=== PATIENT | female | born 1985 | race Hispanic/Latino ===

== ENCOUNTER 2024-02-27 15:08 | Emergency (ER) | payer BC ==
--- NOTE | 2024-02-27 15:44 | RAD REPORT ---
EXAM DESCRIPTION: US - Abdomen Exam Limited - 02/27/2024 3:32 pm CLINICAL HISTORY: GB eval Abdominal pain COMPARISON: No comparisons FINDINGS: The gallbladder demonstrates large shadowing gallstone. Gallbladder wall is not significan tly thickened. The common bile duct is normal measuring 5 mm. The liver demonstrates no findings of intrahepatic biliary dilatation. IMPRESSION: Cholelithiasis.
[2024-02-27] MEDS ORDERED: MORPHINE 4 MG/ML SYR ONE (16:25)
[2024-02-27] MEDS ORDERED: ONDANSETRON 4 MG/2 ML VIAL ONE (16:25)
[2024-02-27] MEDS ORDERED: NA CHLORIDE 0.9% 1,000 ML ONE (16:25)
[2024-02-27 17:40] LABS: Specific Gravity 1.013 (1.005-1.030)
[2024-02-27 17:41] LABS: Absolute Basophils 0.1 K/uL (0-0.5); Absolute Eosinophils 0.2 K/uL (0-0.5); Absolute Lymphocytes (CBC) 1.1 K/uL (0.7-4.9); Basophils % 0.4 % (0-1.3); Eosinophils % 1.3 % (0-4.4); Hematocrit 36.3 % (36.0-45.0); Lymphocytes % 7.4 % (15.3-44.8); MCH 26.7 pg (27.0-35.0); MCHC 33.1 g/dL (32.0-36.0); MCV 80.7 fL (80-100); MPV 7.7 fL (7.6-11.3); Neutrophils % 83.9 % (41.7-73.7); Nucleated Red Blood Cells % 0.1 % (0-0); Platelets 347 thou/uL (152-406)
[2024-02-27 17:55] LABS: Albumin 3.9 g/dL (3.4-5.0); Albumin/Globulin Ratio 1.1 (1.1-1.8); Anion Gap 8.7 mEq/L (5.0-15.0); Bilirubin Total 0.7 mg/dL (0.2-1.0); Globulin 3.6 g/dL (2.3-3.5); Potassium 3.7 mEq/L (3.5-5.1); Protein, Total 7.5 g/dL (6.4-8.2)
--- NOTE | 2024-02-27 18:26 | EDPHYS ---
Physician Documentation [facility] Name: Arline Enamorado Age: 38 yrs Sex: Female : 1985 Arrival Date: 02/27/2024 Time: 15:08 Bed 9 Private MD: ED Physician Stef Abbott HPI: 02/26 15:48 This 38 yrs old Female presents to ER via Ambulatory with complaints of Abdominal Pain, ec2 Back Pain. 15:49 Patient arrives today for epigastric abdominal pain radiating to the right shoulder, ec2 history of gallstones. Patient reports of associated nausea without vomiting. Last p.o. 11:00. Historical: - Allergies: 18:17 No Known Allergies; ar6 - Immunization history:: Adult Immunizations up to date. - Infectious Disease History:: Denies. - Social history:: Smoking status: Patient denies any tobacco usage or history of. ROS: 15:49 Constitutional: as per hpi ec2 Exam: 15:49 Constitutional: GEN: NAD Head: atraumatic Eyes: EOMI Ears: External ears are ec2 normal. CV: regular rate LUNGS: no respiratory distress ABD: non-distended, tender in the epigastrium SKIN: no evidence of rashes MSK: no evidence of trauma Vital Signs: 15:41 BP 126 / 87; Pulse 73; Resp 16; Temp 98.5(O); Pulse Ox 100% on R/A; db 17:20 BP 106 / 67; Pulse 72; Resp 18; Temp 98.1(O); Pulse Ox 100% on R/A; Weight 86.18 kg; ar6 Height 5 ft. 5 in. ; Pain 8/10; 18:19 BP 110 / 66; Pulse 70; Resp 16; Pulse Ox 100% ; ar6 18:46 BP 118 / 64; Pulse 68; Resp 18; Pulse Ox 99% on R/A; ar6 17:20 Body Mass Index 31.62 (86.18 kg, 165.1 cm) ar6 17:20 Pain Scale: Adult ar6 MDM: 15:12 Patient medically screened. ec2 15:49 Data reviewed: vital signs. ED course: Patient arrives today for upper abdominal pain. ec2 Examination markable for abdominal findings as above. Will obtain lab work, ultrasound. Differential includes gallstones, cholecystitis, pancreatitis. . 17:41 ED course: EKG independently reviewed and interpreted by me, shows normal sinus rhythm, ec2 rate of 74, no acute ST segment elevations, intervals nonconcerning. . 17:54 ED course: CBC with light leukocytosis at 14.4, testing negative. . ec2 18:15 ED course: Metabolic profile shows overall reassuring liver profile with slight ec2 elevations, lipase within normal ranges. . 18:25 ED course: On reassessment patient reports marked improvement in her pain. I discussed ec2 the case with Dr. Hutchinson, surgery who will see her outpatient for cholecystectomy electively. Will discharge home. Return precautions given. I did discuss inpatient hospitalization with the patient as well.. 02/26 15:47 Order name: CBC with Diff ec2 02/26 15:47 Order name: CMP; Complete Time: 18:14 ec2 02/26 15:47 Order name: Lipase; Complete Time: 18:14 ec2 02/26 15:47 Order name: Test, Urine; Complete Time: 17:54 ec2 02/26 17:50 Order name: CBC Smear Scan EDMS 02/26 15:12 Order name: US Abdomen Limited; Complete Time: 15:55 ec2 02/26 15:47 Order name: IV Saline Lock; Complete Time: 17:45 ec2 02/26 15:47 Order name: Labs collected and sent; Complete Time: 17:45 ec2 02/26 15:47 Order name: EKG - Nurse/Tech; Complete Time: 17:45 ec2 Administered Medications: 17:30 Drug: NS 0.9% IV 1000 ml IV at 1 bolus Per protocol; 1000 mL bolus Route: IV; Rate: 1 ar6 bolus; Site: left forearm; 18:45 Follow up: Response: No adverse reaction; IV Status: Completed infusion; IV Intake: ar6 1000ml 17:30 Drug: Ondansetron IVP 4 mg IVP once; over 2 minutes Route: IVP; Site: left forearm; ar6 18:45 Follow up: Response: No adverse reaction ar6 17:30 Drug: morphine IVP or IV 4 mg IVP once over 4 mins Route: IVP; Infused Over: 4 mins; ar6 Site: left forearm; 18:45 Follow up: Response: No adverse reaction ar6 Disposition Summary: 02/27/24 18:26 Discharge Ordered Notes: Location: Home ec2 Condition: Stable ec2 Diagnosis - Calculus of gallbladder without cholecystitis without obstruction ec2 Followup: ec2 - With: Private Physician - When: - Reason: Re-evaluation by your physician Discharge Instructions: - Discharge Summary Sheet ec2 - Biliary Colic, Adult ec2 Forms: - Medication Reconciliation Form ec2 - Antibiotic Education ec2 - Prescription Opioid Use ec2 - Patient Portal Instructions ec2 - Leadership Thank You Letter ec2 Prescriptions: - acetaminophen-codeine 300-30 mg Oral tablet - take 1 tablet ORAL route every 6 hours as needed for pain; 20 tablet; Refills: ec2 0, Product Selection Permitted - Zofran 4 mg Oral Tablet - take 1 tablet ORAL route every 12 hours As needed; 20 tablet; Refills: 0, ec2 Product Selection Permitted Signatures: Dispatcher [employer] Martine Koehler, RN RN db Stef Abbott MD MD ec2 Araceli Lang RN RN ar6 Corrections: (The following items were deleted from the chart) 15:12 15:12 Abdomen Limited+US.RAD.BRZ ordered. GILBERTO MACIAS
--- NOTE | 2024-02-27 18:26 | ER ---
Nurse's Notes [facility] Name: Arline Enamorado Age: 38 yrs Sex: Female : 1985 Arrival Date: 02/27/2024 Time: 15:08 Bed 9 Private MD: Diagnosis: Calculus of gallbladder without cholecystitis without obstruction Presentation: 02/26 15:41 Chief complaint: Patient states: MIDDLE UPPER ABD PAIN AFTER EATING LUNCH WAS "CLAMMY db SWEATING". NOW HAS RIGHT UPPER SHOULDER PAIN RADIATING DOWN BACK WITH EPIGASTRIC "BURNING" STARTED TODAY +1400. Coronavirus screen: Client denies travel out of the [place] in the last 14 days. At this time, the client does not indicate any symptoms associated with coronavirus-19. Ebola Screen: Patient negative for fever greater than or equal to 101.5 degrees Fahrenheit, and additional compatible Ebola Virus Disease symptoms Patient denies exposure to infectious person. Patient denies travel to an Ebola-affected area in the 21 days before illness onset. No symptoms or risks identified at this time. Initial Sepsis Screen: Does the patient meet any 2 criteria? No. Patient's initial sepsis screen is negative. Does the patient have a suspected source of infection? No. Patient's initial sepsis screen is negative. Risk Assessment: Do you want to hurt yourself or someone else? Patient reports no desire to harm self or others. Onset of symptoms was February 27, 2024 at 14:00. 15:41 Method Of Arrival: Ambulatory db 15:41 Acuity: TIARA 3 db Triage Assessment: 15:41 General: Appears in no apparent distress. uncomfortable, Behavior is calm, cooperative. db Pain: Complains of pain in back and abdomen. Neuro: Level of Consciousness is awake, alert, obeys commands, Oriented to person, place, time, situation. Respiratory: Airway is patent Respiratory effort is even, unlabored, Respiratory pattern is regular, symmetrical. GI: Abdomen is non-distended. GI: Reports upper abdominal pain, nausea. Historical: - Allergies: 18:17 No Known Allergies; ar6 - Immunization history:: Adult Immunizations up to date. - Infectious Disease History:: Denies. - Social history:: Smoking status: Patient denies any tobacco usage or history of. Screenin:[address] [facility] ED Fall Risk Assessment (Adult) History of falling in the last 3 months, ar6 including since admission No falls in past 3 months (0 pts) Confusion or Disorientation No (0 pts) Intoxicated or Sedated No (0 pts) Impaired Gait No (0 pts) Mobility Assist Device Used No (0 pt) Altered Elimination No (0 pt) Score/Fall Risk Level 0 - 2 = Low Risk Oriented to surroundings, Maintained a safe environment, Educated pt \\T\\ family on fall prevention, incl call for assistance when getting out of bed, Hourly rounding (assess needs \\T\\ fall precautionary measures) done. Abuse screen: Denies threats or abuse. Denies injuries from another. Nutritional screening: No deficits noted. Tuberculosis screening: No symptoms or risk factors identified. Assessment: 17:30 General: Appears in no apparent distress. uncomfortable, Behavior is calm, cooperative, ar6 appropriate for age. Pain: Complains of pain in abdomen Pain began 3 hours ago. Neuro: Level of Consciousness is awake, alert, obeys commands, Oriented to person, place, time, situation. Cardiovascular: Capillary refill < 3 seconds. Respiratory: Airway is patent. GI: Abdomen is round non-distended, Bowel sounds present X 4 quads. Abd is soft X 4 quads Abdomen is tender to palpation in epigastric area, umbilical area, left upper quadrant and abdomen diffusely Reports nausea, vomiting. : Denies urinary frequency, urgency. EENT: Oral mucosa is moist. Derm: Skin is intact, is healthy with good turgor, Skin is clammy, Skin is pink, warm \\T\\ dry. Musculoskeletal: No signs and/or symptoms reported regarding the musculoskeletal system. Vital Signs: 15:41 BP 126 / 87; Pulse 73; Resp 16; Temp 98.5(O); Pulse Ox 100% on R/A; db 17:20 BP 106 / 67; Pulse 72; Resp 18; Temp 98.1(O); Pulse Ox 100% on R/A; Weight 86.18 kg; ar6 Height 5 ft. 5 in. ; Pain 8/10; 18:19 BP 110 / 66; Pulse 70; Resp 16; Pulse Ox 100% ; ar6 18:46 BP 118 / 64; Pulse 68; Resp 18; Pulse Ox 99% on R/A; ar6 17:20 Body Mass Index 31.62 (86.18 kg, 165.1 cm) ar6 17:20 Pain Scale: Adult ar6 ED Course: 15:11 Patient arrived in ED. im 15:12 Stef Abbott MD is Attending Physician. ec2 15:34 US Abdomen Limited In Process Unspecified. EDMS 15:43 Triage completed. db 15:44 Arm band placed on right wrist. Patient placed. db 16:33 Araceli Lang, RN is Primary Nurse. ar6 17:04 Test, Urine Sent. ar6 17:19 CBC with Diff Sent. ar6 17:19 CMP Sent. ar6 17:19 Lipase Sent. ar6 17:20 No apparent distress. Awaiting lab results, Awaiting radiology results. ar6 17:20 Patient has correct armband on for positive identification. Bed in low position. Call ar6 light in reach. Side rails up X 1. Provided Education on: medications \\T\\ POC. Client placed on continuous cardiac and pulse oximetry monitoring. NIBP monitoring applied. Door closed. Noise minimized. Lights dimmed. Warm blanket given. Pillow given. Elevated. 17:20 No provider procedures requiring assistance completed. Inserted saline lock: 20 gauge ar6 in left wrist, using aseptic technique. Blood collected. Flushed with 10 mL NS. 18:46 IV discontinued, intact, bleeding controlled, No redness/swelling at site. Pressure ar6 dressing applied. Administered Medications: 17:30 Drug: NS 0.9% IV 1000 ml IV at 1 bolus Per protocol; 1000 mL bolus Route: IV; Rate: 1 ar6 bolus; Site: left forearm; 18:45 Follow up: Response: No adverse reaction; IV Status: Completed infusion; IV Intake: ar6 1000ml 17:30 Drug: Ondansetron IVP 4 mg IVP once; over 2 minutes Route: IVP; Site: left forearm; ar6 18:45 Follow up: Response: No adverse reaction ar6 17:30 Drug: morphine IVP or IV 4 mg IVP once over 4 mins Route: IVP; Infused Over: 4 mins; ar6 Site: left forearm; 18:45 Follow up: Response: No adverse reaction ar6 Medication: 18:17 VIS not applicable for this client. ar6 Intake: 18:45 IV: 1000ml; Total: 1000ml. ar6 Outcome: 18:26 Discharge ordered by . ec2 18:46 Discharged to home ambulatory, ar6 18:46 Condition: good 18:46 Discharge instructions given to patient, family, Instructed on discharge instructions, follow up and referral plans. medication usage, Demonstrated understanding of instructions, follow-up care, medications, Prescriptions given X 2, 18:47 Patient left the ED. ar6 Signatures: Dispatcher [employer] Martine Koehler RN RN db Lisa Nice Edwin, MD MD ec2 Araceli Lang RN RN ar6 Corrections: (The following items were deleted from the chart) 15:43 15:41 Onset of symptoms was February 27, 2024 db db 18:46 18:19 BP 110 / ???; Pulse 70bpm; Resp 16bpm; Pulse Ox 100%; ar6 ar6
[2024-02-27 18:54] VITALS: TEMP 98.1
[2024-02-27 18:57] VITALS: BP 118/64; O2SAT 99
[2024-02-27 19:02] LABS: Blood Morphology Comment NOT SEEN (NOT SEEN); Platelet Estimate ADEQ; White Blood Cell Scan OK (OK)
--- NOTE | 2024-03-02 12:49 | EKG ---
Test Date: 2024-02-27 Test Time: 17:39:27 Compliance Clerk: SALLY MEASUREMENT RESULTS: Intervals: Rate: 74 AK: 152 QRSD: 84 QT: 416 QTc: 461 [place]: P: 71 AK: 152 QRS: 72 T: 53 INTERPRETIVE STATEMENTS: Normal sinus rhythm Cannot rule out Anterior infarct, age undetermined Abnormal ECG No previous ECG available for comparison Electronically Signed On 03-02-24 12:42:36 CDT by Seng Welch
== END 2024-02-27 18:47 | disposition home or self-care (01) ==
LOC: ER 15:08
DX: K80.20 Calculus of gallbladder without cholecystitis without obstruction (principal)
CPT/HCPCS: 96361; 93005; 85025; 36415; 81025; 83690; 80053; 76705; 96375; 96374; 99284; J2405; J7030

== ENCOUNTER 2024-07-09 09:57 | Day surgery (SDC) | payer BC ==
[2024-07-07 14:46] LABS: Anion Gap 8.4 mEq/L (5.0-15.0); Bilirubin Total 0.3 mg/dL (0.2-1.0); Potassium 3.4 mEq/L (3.5-5.1)
[2024-07-09] MEDS: Ringers Lactate 1,000 ML IV ONE (10:15)
[2024-07-09] MEDS ORDERED: ROCURONIUM 50 MG/5 ML VIAL IV ONE (12:08)
[2024-07-09] MEDS ORDERED: FENTANYL CITR 100 MCG/2 ML ONE ×2 (12:08→13:09)
[2024-07-09] MEDS ORDERED: ONDANSETRON 4 MG/2 ML VIAL ONE (12:08)
[2024-07-09] MEDS ORDERED: MIDAZOLAM HCL 2 MG/2 ML INJ ONE (12:08)
[2024-07-09] MEDS ORDERED: LIDOCAINE 2% MPF 5 ML VIAL ONE (12:08)
[2024-07-09] MEDS ORDERED: propofoL 200 MG/20 ML VIAL IV ONE (12:08)
[2024-07-09] MEDS: LIDOCAINE HCL/EPINEPHRINE 20 ML MDV ONE (12:32)
[2024-07-09] MEDS: CEFOXITIN SODIUM 2 GM/VIAL ONE (13:17)
[2024-07-09] MEDS ORDERED: dexAMETHasone 4 MG/ML VIAL ONE (13:43)
[2024-07-09] MEDS ORDERED: KETOROLAC 30 MG/ML INJ ONE (13:43)
[2024-07-09] MEDS ORDERED: GLYCOPYRROLATE 0.2 MG/ML SYR ONE (13:47)
[2024-07-09] MEDS ORDERED: Phenylephrine HCl 10 MG/ML 1 ML VIAL ONE (14:06)
[2024-07-09] MEDS ORDERED: SUGAMMADEX SODIUM 200 MG/2 ML VIAL IV ONE (14:19)
--- NOTE | 2024-07-09 14:20 | P.OP ---
Preoperative diagnosis: Chronic Cholecystitis with Cholelithiasis Postoperative diagnosis: Chronic Cholecystitis with Cholelithiasis Primary procedure: Laparoscopic Cholecystectomy with ICG Cholangiography Anesthesia: GETA + Local Estimated blood loss: <5cc Specimen: Gallbladder Findings: Large Gallstones, [id number], Stomach Adhesions, Short cystic duct Complications: None Transferred to: Recovery Room Condition: Good
[2024-07-09] MEDS: HYDROMORPHONE HCL 1 MG/ML INJ ONE (14:57)
[2024-07-09 15:56] VITALS: BP 109/61; TEMP 98.5; O2SAT 100
--- NOTE | 2024-07-09 17:20 | OP ---
Date of Procedure: 07/09/2024 Surgeon: Donis Hutchinson MD, Preoperative Diagnoses: Chronic cholecystitis with cholelithiasis. Postoperative Diagnoses: Chronic cholecystitis with cholelithiasis. Procedures: Laparoscopic cholecystectomy with indocyanine green cholangiography. Anesthesia: General endotracheal plus local. Estimated Blood Loss: Less than 5 cc. Specimen: Gallbladder. Findings: 1.Enlarged gallstones in the neck of the gallbladder. 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 3.Severe thick adhesions between the stomach along the lesser curve and the gallbladder and Jaswinder 's pouch of the gallbladder. 4.Short cystic duct noted. 5.Umbilical hernia noted. Complications: None. Implants: None. Disposition: The patient transferred to recovery room in good condition. Procedure In Detail: After informed consent was obtained, patient was brought into the operating bernardino m, prepped and draped in the usual sterile fashion. After adequate anesthesia was achieved, I anesth etized an area of the supraumbilical position down to subcutaneous tissues. 5-mm 0-degree optical tr ocar was introduced into the abdomen without incident or complication. Insufflation was obtained to 15 mmHg, at this time. There was no injury to vital structures upon entry into the abdomen. Two add itional trocars were placed, one in the right upper quadrant and one in the epigastrium. Both of the se were similarly anesthetized, sharply incised. A 5 mm trocar was placed under direct visualization without incident or complication. The patient was then positioned in the head up right-side up posi tion. Ratcheted grasper was used to grasp the patient's gallbladder at the fundus and towards the pa tient's right shoulder. Dissection continued down to the Jaswinder pouch of the gallbladder where sig nificant adhesions were found between the stomach and the anterior surface of the gallbladder and the Jaswinder pouch of the gallbladder region. These were taken down using combination of blunt and elec trocautery dissection, ultimately localizing these structures. The short cystic duct was noted and c onfirmed with ICG cholangiography. At this point, I then dissected circumferentially around, identif ied both cystic duct and cystic artery. Critical view of safety was obtained, at this point. I then dissected around these structures after I completely skeletonized and placed double titanium clips p roximally, singly on the distal side of both cystic duct and cystic artery. These structures were th en ligated between Endo Edd without incident or complication. At this point, the gallbladder was removed from the hepatic fossa without incident or complication using electrocautery, placed in EndoC atch bag, removed through the umbilical trocar site, and sent off for pathologic examination. The ar ea was copiously irrigated, suctioned out, completely dry. I then performed ICG cholangiography at e of the procedure showing no leakage of bile at the end of the procedure. At this point, I then pr oceeded to take down some of the Dohv-Lxlt-Qupwyf adhesions on the anterior surface of the liver usin g simple combination of electrocautery and blunt dissection to allow for mobilization of liver to the normal anatomic position. At this point, I then turned my attention to the umbilical trocar site, c losed that using a Checo-Valeria suture passer with 0 Vicryl in an interrupted fashion, good approx imation of tissues, and then the abdomen was desufflated under direct visualization without incident or complication. Remainder of trocars were removed. All skin incisions were then copiously irrigate d and closed with a 4-0 Monocryl in a running fashion. Dermabond was placed over top. The patient t olerated the procedure well without evidence of complication and transferred to PACU in good condition. All counts were correct at the end of the case. DEXTER/KOBE Voice ID: [id number] Report ID: [id number]
== END 2024-07-09 16:05 | disposition home or self-care (01) ==
LOC: OR 09:57
PROVIDERS: ATTEND Surgery
PROC: BF50200 Other Imaging of Bile Ducts using Fluorescing Agent, Indocyanine Green Dye, Intraoperative (ICD-10-PCS; 2024-07-09)
PROC: 0DNW4ZZ Release Peritoneum, Percutaneous Endoscopic Approach (ICD-10-PCS; 2024-07-09)
PROC: 0FT44ZZ Resection of Gallbladder, Percutaneous Endoscopic Approach (ICD-10-PCS; principal; 2024-07-09 13:00)
DX: K80.10 Calculus of gallbladder with chronic cholecystitis without obstruction (principal); K42.9 Umbilical hernia without obstruction or gangrene; K66.0 Peritoneal adhesions (postprocedural) (postinfection)
CPT/HCPCS: 36415; 81025; 80053; 47563; 49329; J2704; J1100; J2371; J2003; J2250; J3010 ×2; J1171; J0694; J2405; J7120; 88304